=== PATIENT | female | born 1960 | race Caucasian/White ===

== ENCOUNTER 2022-03-11 17:09 | Emergency (ER) | payer OTHER, MEDICAID, SELFPAY ==
[2022-03-11 17:45] VITALS: BP 143/79; PULSE 86; RESP 18; TEMP 36.3; O2SAT 100; BMI 34.4
--- NOTE | 2022-03-11 17:49 | DI.RAD.S_ITS ---
PROCEDURE: XR WRIST RT MIN 3V INDICATIONS: ongoing pain,fall TECHNIQUE: 4 views of the wrist were acquired. COMPARISON: None. FINDINGS: Bones: No fractures or dislocations. No suspicious bony lesions. Scaphoid view: Normal Soft tissues: No suspicious soft tissue calcifications. IMPRESSION: Normal right wrist. No definite radiographic abnormality. If pain persists with conservative management consider cross-sectional imaging with MRI or CT. Dictated by: Ty Ramesh M.D. on 03/11/2022 at 18:08 Approved by: Ty Ramesh M.D. on 03/11/2022 at 18:09
--- NOTE | 2022-03-11 19:17 | ED_ITS ---
HPI - Extremity Injury (Upper) <Slava Caldwell PA-C - Last Filed: 03/11/22 19:25> General Chief Complaint: Extremity Injury, Upper Stated Complaint: Possible wrist fracture Time Seen by Provider: 03/11/22 18:55 History of Present Illness HPI narrative: Patient is 61-year-old female who states earlier today she was reaching for her dog slipped fell patient as she was going down she used her right hand to brace herself. Since that time she has had pain and tenderness in the right hand and the left arm and is concerned about a fracture to the right hand. Hand is also weak because of the pain. Has a splint for the hand she has been using to have supported the hand really pain. Denies any other concerns. Review of Systems <Slava Caldwell PA-C - Last Filed: 03/11/22 19:25> Review of Systems Narrative: R.O.S.: General: No fever, chills or fatigue. Cardiovascular: No chest pain or palpitations Respiratory: No S.O.B. HEENT: No congestion, ear pain, rhinorrhea, sore throat or tinnitus Gastrointestinal: No nausea or vomiting Skin: No rash or associated abnormalities Musculoskeletal: Left hand pain status post fall earlier today the? Neurological: Awake, alert and in not apparent distress. No Headaches, changes in vision or other related neurological concerns. Patient History <Slava Caldwell PA-C - Last Filed: 03/11/22 19:25> Social History Smoking Status: Never smoker Smoking Status: Never smoker Substance Use Type: does not use Exam <BASHIR Berry Last Filed: 03/11/22 19:25> Narrative Exam Narrative: Physical Exam: ? General: normal appearance, well developed, well nourished, alert, and awake. Not in acute distress. ? Head: Normocephalic, no lesions. Chest: Lungs CTAB, no rales, rhonchi or wheezes. ?? Heart: RRR, no murmurs, rubs or gallops. Eyes: PERRLA, EOM's full, conjunctivae clear. ? Neuro: Physiological, no localizing findings, CN3-12 intact. ?? Musculoskeletal: Patient is generally weakness of the right hand. There is no snuffbox tenderness in the hand has good range of motion good capillary refill mild weakness for complaints of pain. ? Skin: Normal, no rashes, no lesions noted. ?? PSYCHIATRIC: The mood is good, no blunted affect. Speech is clear. Thought process is linear, thought content is appropriate. The voice is without significant inflection. Gastrointestinal: Soft; NT; ND; Pos BS with Neg. rebound tenderness. No scars or major deformities noted on Visual Inspection. Initial Vital Signs Initial Vital Signs: Vital Signs Temperature 97.3 F L 03/11/22 17:45 Pulse Rate 86 03/11/22 17:45 Respiratory Rate 18 03/11/22 17:45 Blood Pressure 143/79 H 03/11/22 17:45 Pulse Oximetry 100 03/11/22 17:45 Oxygen Delivery Method 03/11/22 17:45 <DO Rajat Valera Last Filed: 03/12/22 05:42> Initial Vital Signs Initial Vital Signs: Vital Signs Temperature 97.3 F L 03/11/22 17:45 Pulse Rate 86 03/11/22 17:45 Respiratory Rate 18 03/11/22 17:45 Blood Pressure 143/79 H 03/11/22 17:45 Pulse Oximetry 100 03/11/22 17:45 Oxygen Delivery Method 03/11/22 17:45 Course <Slava Caldwell PA-C - Last Filed: 03/11/22 19:25> Orders Ordered: ED Orders 03/11/22 17:49 XR wrist RT min 3V Stat Vital Signs Vital signs: Vital Signs - 8 hr 03/11/22 17:45 Temperature 97.3 F L Pulse Rate 86 Respiratory Rate 18 Blood Pressure 143/79 H Pulse Oximetry 100 Oxygen Delivery Method Room Air <DO Rajat Valera Last Filed: 03/12/22 05:42> Orders Ordered: ED Orders 03/11/22 17:49 XR wrist RT min 3V Stat Vital Signs Vital signs: Vital Signs - 8 hr 03/11/22 17:45 Temperature 97.3 F L Pulse Rate 86 Respiratory Rate 18 Blood Pressure 143/79 H Pulse Oximetry 100 Oxygen Delivery Method Room Air MDM - Extremity Injury (Upper) <BASHIR Berry Last Filed: 03/11/22 19:25> Imaging Data Extremity x-ray #1: Radiologist's Impression: PROCEDURE:? XR WRIST RT MIN 3V ? INDICATIONS: ongoing pain,fall ? TECHNIQUE:? 4 views of the wrist were acquired.? ? COMPARISON:? None. ? FINDINGS:? ? Bones:? No fractures or dislocations.? No suspicious bony lesions.? ? Scaphoid view:? Normal ? Soft tissues:? No suspicious soft tissue calcifications.? ? IMPRESSION:? Normal right wrist. No definite radiographic abnormality.? If pain persists with conservative management consider cross-sectional imaging with MRI or CT. ? ? ? Dictated by: Ty Ramesh M.D. on 03/11/2022 at 18:08 ? ? Approved by: Ty Ramesh M.D. on 03/11/2022 at 18:09 ? MDM Narrative Medical decision making narrative: Patient is a 61-year-old female presents today with hand pain after falling onto her right hand. X-ray was negative for fracture patient is already wearing a splint that is comfortable for her. Discussed hand sprains and related concerns and advised patient to return to the emergency room for any emergent concerns arise. Patient agreed plan Discharge Plan Departure Patient Disposition: Home Clinical Impression: Sprain of hand, Pain of hand Instructions: DI for Hand Injury Activity Restrictions/Additional Instructions: *You have been diagnosed with sprain of your right hand. X-rays were negative for fracture. I suggest you continue to wear your hand splint that she had. Please refrain from any strenuous use of the right hand at this time. Also ramos ggest to use [id number] ibuprofen or naproxen for pain. Please return to the emergency room if any emergent concerns arise. [ ] *What to do: *Please continue to take your regular medications as directed. [ ] New medication prescriptions sent to your pharmacy: [ ] [ ] New medication written as a paper prescription [x] No new medications given *Please follow up with your primary care provider in 2-3 days, call for an appointment. Let them know you were seen in the Emergency Department and that we ask that you be seen in follow up. We will electronically transmit a record of today's note if your PCP is in our system *If you do not have a primary care provider please contact the [facility] Resource line at [phone]. They will ask some questions about your medical history and help get you set up with a doctor in the community. *Return to Emergency Department if you should have any new, worsening or concerning symptoms, such as [fever greater than 101 F, shaking chills, worsening pain, persistent vomiting or other bothersome symptoms] Visit Report Forms: Patient Portal/API <Allyssa Quintero DO - Last Filed: 03/12/22 05:42> Cosign ED Attending Cosignature Attestation: I was immediately available in the department for consultation. Documentation has been reviewed.
== END 2022-03-11 19:31 | disposition home or self-care (01) ==
PROVIDERS: Emergency Provider Physician Assistant
DX: S63.91XA Sprain of unspecified part of right wrist and hand, initial encounter (principal); W19.XXXA Unspecified fall, initial encounter
CPT/HCPCS: 73110; 99281; 99283